=== PATIENT | female | born 1945 | race Two or more races ===

== ENCOUNTER 2017-01-13 20:04 | Emergency (ER) | payer MEDICARE ==
[2017-01-13] MEDS ORDERED: Ondansetron 4 MG/2 ML SDV IVPUSH ONE (20:33)
[2017-01-13] MEDS ORDERED: Sodium Chloride 0.9% 500 ML IV ONE (20:33)
--- NOTE | 2017-01-13 22:04 | EDM.PDOC ---
ED HPI GI/ABDOMINAL - General Chief Complaint: Gastrointestinal Problem Time Seen by Provider: 01/13/17 20:19 Source: Reports: Patient, Family History Limitations: Reports: Language barrier - History of Present Illness INITIAL COMMENTS - FREE TEXT/NARRATIVE: 71 years old female came to the ed due to 3 days N/V/D. Symptoms started with nausea after eating. As the nausea improved, her diarrhea stated. BNo blood in stool, no trauma. No other medical issues. Symptom Onset Date: 01/10/17 Symptom Onset Time: 07:00 Timing/Duration: Reports: Day(s):, Intermittent Location: generalized Quality: Reports: cramping Severity: mild Worsens with: Reports: defecating Context: Reports: bad/questionable food Associated Symptoms (-Female): Reports: denies other symptoms - Related Data Allergies/ADRs: Allergies Allergy/AdvReac Type Severity Reaction Status Date / Time clindamycin Allergy Cannot Verified 07/24/16 12:40 Remember Penicillins Allergy Cannot Verified 07/24/16 12:40 Remember Home Meds: Home Meds traMADol [Ultram] 50 mg PO BID PRN 01/19/14 [History] Gabapentin [Neurontin] 600 mg PO BID 05/01/15 [History] Ondansetron [Zofran ODT] 4 mg PO Q6H PRN #10 tab.dis 01/13/17 [Rx] Past Medical History HEENT History: Reports: Other (see below) Other HEENT History: hx of throat cancer. 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 Dermatological Surgical History: Reports: None Social & Family History - Family History Family Medical History: Noncontributory - Tobacco Use Smoking Status *Q: Never Smoker Second Hand Smoke Exposure: No - Caffeine Use Caffeine Use: Reports: Coffee - Alcohol Use Days Per Week of Alcohol Use: 0 - Recreational Drug Use Recreational Drug Use: No ED ROS GENERAL - Review of Systems Review Of Systems: Unable To Obtain ED EXAM, GI/ABD - Physical Exam Exam: See Below Exam Limited By: Language barrier General Appearance: alert, WD/WN, no apparent distress Eyes: bilateral: normal appearance, EOMI Ears: normal external exam, normal canal, hearing grossly normal Nose: normal inspection, normal mucosa, no blood Throat/Mouth: Normal inspection, Normal lips, Normal teeth, Normal gums, Normal voice, No airway compromise, Other (dry mucosal mmbrane) Head: atraumatic, normocephalic Neck: normal inspection, supple, non-tender, full range of motion Respiratory/Chest: no respiratory distress, lungs clear, normal breath sounds, no accessory muscle use, chest non-tender Cardiovascular: normal peripheral pulses, regular rate, rhythm, no edema, no gallop, no JVD, no murmur, no rub GI/Abdominal: normal bowel sounds, soft, non tender, no organomegaly, no distention, no abnormal bruit, no mass (Female) Exam: Deferred Rectal (Female) Exam: Deferred Back Exam: normal inspection, full range of motion, NT Extremities: normal inspection, normal range of motion, non-tender, normal capillary refill, no pedal edema Neurological: alert, oriented, CN II-XII intact, normal cognition, normal gait, no motor/sensory deficits Psychiatric: normal affect, normal mood Skin Exam: Warm, Dry, Intact, Normal color Lymphatic: no adenopathy Course - Vital Signs Text/Narrative:: 71 years old female came to the ed due to 3 days N/V/D. Symptoms started with nausea after eating. As the nausea improved, her diarrhea stated. BNo blood in stool, no trauma. No other medical issues. PE: dry mucosal membrane, thin, no acute distress. Labs: bun/cr elevated, Fecal Cx is pending Impression: Dehydration, Gastroenateritis, poss food poisoning Tx: NS, Zofran, Pt was able to keep water down on d/c to home. Reexam: Improved Plan: D/C with instructions. Last Recorded V/S: Last Vital Signs Temp 36.6 C 01/13/17 20:19 Pulse 81 01/13/17 22:00 Resp 17 01/13/17 22:00 BP 128/79 01/13/17 22:00 Pulse Ox 100 01/13/17 22:00 - Orders/Labs/Meds Orders: Active Orders 24 hr Category Date Time Status CULTURE-STOOL [MREF] Stat Lab 01/13/17 22:08 Received Labs: Laboratory Tests 01/13/17 01/13/17 01/13/17 Range/Units 20:45 20:45 20:45 WBC 11.3 (4.5-12.0) X10-3/uL RBC 4.17 (3.23-5.20) x10(6)uL Hgb 14.0 D (11.5-15.5) g/dL Hct 41.8 (30.0-51.3) % MCV 100.3 H (80-96) fL MCH 33.7 H (27.7-33.6) pg MCHC 33.6 (32.2-35.4) g/dL RDW 12.7 (11.5-15.5) % Plt Count 98 L (125-369) X10(3)uL MPV 7.5 (7.4-10.4) fL Neut % (Auto) 62.9 (46-82) % Lymph % (Auto) 27.2 (13-37) % Menard % (Auto) 9.4 (4-12) % Eos % (Auto) 0 L (1.0-5.0) % Baso % (Auto) 1 (0-2) % Neut # (Auto) 7.0 (1.6-8.3) # Lymph # (Auto) 3.1 (0.6-5.0) # Menard # (Auto) 1.1 (0.0-1.3) # Eos # (Auto) 0.0 (0.0-0.8) # Baso # (Auto) 0.1 (0.0-0.2) # PT 12.1 H (8.7-11.1) INR 1.20 H (0.89-1.13) Sodium 134 L (135-145) mmol/L Potassium 3.5 (3.5-5.3) mmol/L Chloride 102 (100-110) mmol/L Carbon Dioxide 22 L (23-29) mmol/L BUN 46 H D (8-23) mg/dL Creatinine 1.6 H (0.6-1.3) mg/dL Est Cr Clr Drug Dosing TNP Estimated GFR (MDRD) 32 L (>60) BUN/Creatinine Ratio 28.8 H (9-20) Glucose 133 H (80-116) mg/dL Calcium 9.2 (8.6-10.2) mg/dL B-Natriuretic Peptide (0-100) pg/mL 01/13/17 Range/Units 20:45 WBC (4.5-12.0) X10-3/uL RBC (3.23-5.20) x10(6)uL Hgb (11.5-15.5) g/dL Hct (30.0-51.3) % MCV (80-96) fL MCH (27.7-33.6) pg MCHC (32.2-35.4) g/dL RDW (11.5-15.5) % Plt Count (125-369) X10(3)uL MPV (7.4-10.4) fL Neut % (Auto) (46-82) % Lymph % (Auto) (13-37) % Menard % (Auto) (4-12) % Eos % (Auto) (1.0-5.0) % Baso % (Auto) (0-2) % Neut # (Auto) (1.6-8.3) # Lymph # (Auto) (0.6-5.0) # Menard # (Auto) (0.0-1.3) # Eos # (Auto) (0.0-0.8) # Baso # (Auto) (0.0-0.2) # PT (8.7-11.1) INR (0.89-1.13) Sodium (135-145) mmol/L Potassium (3.5-5.3) mmol/L Chloride (100-110) mmol/L Carbon Dioxide (23-29) mmol/L BUN (8-23) mg/dL Creatinine (0.6-1.3) mg/dL Est Cr Clr Drug Dosing Estimated GFR (MDRD) (>60) BUN/Creatinine Ratio (9-20) Glucose (80-116) mg/dL Calcium (8.6-10.2) mg/dL B-Natriuretic Peptide 147 H (0-100) pg/mL Meds: Medications Discontinued Medications Generic Name Dose Route Start Last Admin Trade Name Collin PRN Reason Stop Dose Admin Sodium Chloride 500 mls @ 999 mls/hr 01/13/17 20:33 01/13/17 21:16 Normal Saline IV 01/13/17 21:03 999 mls/hr .BOLUS ONE Administration Ondansetron HCl 8 mg 01/13/17 20:33 01/13/17 21:16 Zofran IVPUSH 01/13/17 20:34 8 mg ONETIME ONE Administration Departure - Departure Time of Disposition: 22:07 Disposition: Home, Self-Care 01 Condition: good Clinical Impression: Gastroenteritis, Dehydration Food poisoning Qualifiers: Encounter type: initial encounter Injury intent: accidental or unintentional Qualified Code(s): T62.91XA - Toxic effect of unspecified noxious substance eaten as food, accidental (unintentional), initial encounter Prescriptions: Ondansetron [Zofran ODT] 4 mg PO Q6H PRN #10 tab.dis PRN Reason: Nausea/Vomiting Instructions: Diarrhea, Adult, Dehydration, Adult Referrals: Jared Solorio MD [Primary Care Provider] - Forms: ED Department Discharge Additional Instructions: Please increase water intake, please take the meds as recommended, Imodium for severe diarrhea only, please follow up, come back the ed if the symptoms get worse acutely. - My Orders Last 24 Hours: My Active Orders 01/13/17 22:08 CULTURE-STOOL [MREF] Stat - Assessment/Plan Last 24 Hours: My Active Orders 01/13/17 22:08 CULTURE-STOOL [MREF] Stat
[2017-01-13 22:29] VITALS: BP 128/79
== END 2017-01-13 22:20 | disposition home or self-care (01) ==
LOC: FB.ED 20:04
DX: T62.91XA Toxic effect of unspecified noxious substance eaten as food, accidental (unintentional), initial encounter (principal); K52.9 Noninfective gastroenteritis and colitis, unspecified; E86.0 Dehydration; M19.90 Unspecified osteoarthritis, unspecified site; Z87.440 Personal history of urinary (tract) infections; Z79.899 Other long term (current) drug therapy; Z88.0 Allergy status to penicillin; Z88.1 Allergy status to other antibiotic agents
CPT/HCPCS: 36415; 80048; 83880; 85025; 85610; 87015; 87045; 87046; 87899; 96361; 96374; 99283; J2405; J7040; 99284